=== PATIENT | female | born 2000 | race Caucasian/White ===

== ENCOUNTER 2025-02-05 10:36 | Emergency (ER) | payer OTHER, SELFPAY ==
--- OUTSIDE RECORDS SUMMARY | 2023-10-06 04:30 | XMS_ITS ---
Author Organization [facility] Address [address] [facility] [address] [place] [address] Care Team Providers Care Enamel Machine Operator Name Role Phone Radha ROTH, Luis Alfredo Primary Care Provider Unavail able Wilmer Moyer Unavailable [phone] [facility] Un[facility] Unavailable REASON FOR VISIT GERD Encounters Encounter Location Date Provider Diagnosis [facility] [address] [facility] [address] [address] [place] [address] 10/06/2023 [facility] Plan Of Treatment No Information Progress Notes * Lmabert DENSONDOB:[birth year] (24 yo F)Acc No.[id number]:10/06/2023 Upper-Endoscopy Procedure Op erative Report Patient: Lambert Montes Provider: [facility] :2000 A ge:23 Y S ex:Female Date:10/06/2023 Address:[address] [place] [address], [address], [place], [id number] Pcp:Luis Alfredo Garcia MD Subjective: * Chief Complaints: * G ERD Billing Information: * Procedure Codes: * Electronic signature of [facility] on 02/05/2025 at 11:47 AM EDT Sign off status: Pending * Provider: [facility] Date: 0 10/06/2023 Generated for Ivani ng/Fajeng/eTransmitting on: 0 02/05/2025 11:47 AM EDT
[2025-02-05 10:45] VITALS: BP 159/100; PULSE 123; RESP 22; TEMP 37.2; O2SAT 98; BMI 29.2
--- NOTE | 2025-02-05 10:45 | US_ITS ---
PROCEDURE INFORMATION: Exam: US Pelvis, Transvaginal, Non-Obstetric Exam date and time: 02/05/2025 10:55 AM Age: 24 years old Clinical indication: Pelvic pain and other: PT tried to remove iud this morning; Additional info: Tried toremove iud TECHNIQUE: Imaging protocol: Real-time transvaginal pelvic (non-obstetric) ultrasound with image documentation. Transvaginal imaging was used for better evaluation of the endometrium, adnexa, and/or cervix. COMPARISON: No relevant prior studies available. FINDINGS: Uterus: An IUD is within the endometrial cavity and demonstrates an abnormally low position, extending 6 mm into the upper cervical canal, series 1, image 5. Right ovary/adnexa: Normal. Normal-size. Small follicles are present. No mass. Normal ovarian blood flow on color Doppler. Left ovary/adnexa: Normal. Normal-size. Small follicles are present No mass. Normal ovarian blood flow on color Doppler. Urinary bladder: Urinary bladder is limited. Intraperitoneal space: No free fluid. IMPRESSION: Abnormal low position of the IUD extending 6 mm into the superior cervical canal.
--- NOTE | 2025-02-05 10:50 | HMH.EDGENADL ---
Discharge Plan Disposition Patient Disposition: Home, Self-Care Condition: Fair Referrals Follow up/Referrals: Ines Barlow DO [Staff Physician, METAL CANS SUPERVISOR] - See instructions Provider,Referral, [Primary Care Provider, Medical] - See instructions Activity Restrictions/Add. Instructions Additional Instructions/Restrictions: Please follow-up in office with Dr. Barlow so she can remove your IUD appropriately. If you have any more problems or concerns please return to the ED. Clinical Impressions Clinical Impression: Attempted IUD removal, unsuccessful Instructions Patient Instructions: DI for Intrauterine Device Removal Print Language Print Language: Icelandic Discharge ED Provider: Tristin Molina General Adult HPI General Chief complaint: Urogenital-Female Stated complaint: vomiting, abdominal pain, Poss IUD issues Time Seen by Provider: 02/05/25 10:54 Mode of Arrival: Ambulatory Source of Information: Patient Description of Symptoms (Recalled from ER Triage Doc. by RN): pt presents to ED with c/o cramping, nausea due to IUD displacement. pt reports that she tried removing her IUD herself at home. her IUD was placed 5 years ago, her OBGYN told her then that she could remove it herself. pt reports that she tried removing it at home but was unsuccessful. History of Present Illness HPI narrative: 24-year-old female presents to the ED today for complaint of cramping, nausea after she tried to remove her IUD herself at home. Her IUD was a Kyleena and it was placed 5 years ago by her AUTOMOTIVE ELECTRICAL HELPER in [place]. Patient says that her AUTOMOTIVE ELECTRICAL HELPER told her it was fine to remove her IUD once it expires. She said she tried to remove it and could not so she is now cramping. No fevers or chills. No vomiting. Related Data Allergies Allergy/AdvReac Type Severity Reaction Status Date / Time adhesive tape Allergy Hives Verified 02/05/25 10:51 Penicillins Allergy Hives Verified 02/05/25 10:51 quetiapine (From Seroquel) Allergy Hives Verified 02/05/25 10:51 PFSH PFS Disclaimer: The information contained in this section may have been updated after the patient was seen, as this information can be updated by other users. Social History Smoking Status: Never smoker alcohol intake: former current occupational status: other Travel in the last 8 weeks?: None ROS Obtained: Yes Systems reviewed as appropriate & no additional complaints except as documented Constitutional Constitutional: Reports as per HPI Physical Exam General General appearance: alert and anxious Head Head exam: normocephalic Eye Eye exam: Present PERRL and EOMI ENT ENT exam: Present normal oropharynx and mucous membranes moist Neck Neck exam: Present full ROM and trachea midline Respiratory Respiratory exam: Present normal lung sounds bilaterally Cardiovascular Cardiovascular exam: Present regular rate, normal rhythm, normal heart sounds, +S1 and +S2 Extremities Exam Extremities exam: Present normal inspection and full ROM Neurological Exam Neurological exam: Present alert and oriented X3 Skin Skin exam: Present warm, dry and intact Medical Decision Making Medical Records Screening: Per USPSTF and CDC recommendations, given the prevalence of disease in our region, it is our hospital?s policy to screen for HIV and viral Hepatitis for all patients aged 18 and over and those with ongoing risk factors. Rafael Inquiry Pt receiving controlled substance: No Rafael was queried for this patient: No Vital Signs: 02/05/25 10:45 02/05/25 11:00 02/05/25 11:46 Temperature 98.9 F Temperature Source Oral Pulse Rate 118 H 116 H Pulse Rate [Left Radial] 123 H Respiratory Rate 22 Blood Pressure 133/89 147/86 H Blood Pressure [Right Arm] 159/100 H Blood Pressure Mean [Right Arm] 119 02 Sat by Pulse Oximetry 98 99 97 02/05/25 12:32 Temperature 98.9 F Temperature Source Pulse Rate 116 H Pulse Rate [Left Radial] Respiratory Rate 22 Blood Pressure 147/86 H Blood Pressure [Right Arm] Blood Pressure Mean [Right Arm] 02 Sat by Pulse Oximetry Lab Data Lab Results 02/05/25 10:59: WBC 7.5, RBC 4.78, Hgb 13.2, Hct 40.5, MCV 84.7, MCH 27.6, MCHC 32.6, RDW 13.5, Plt Count 245, MPV 9.1, Neut % (Auto) 62.1, Lymph % (Auto) 29.1, [place] % (Auto) 7.1, Eos % (Auto) 1.1, Baso % (Auto) 0.5, Neut # (Auto) 4.6, Lymph # (Auto) 2.2, [place] # (Auto) 0.5, Eos # (Auto) 0.1, Baso # (Auto) 0.0, Sodium 139, Potassium 4.0, Chloride 107, Carbon Dioxide 22, Anion Gap 14.0, BUN 9, Creatinine 0.80, Estimated Creat Clear 133, Estimated GFR 89, Est GFR ( Amer) 108, Glucose 143 H, Calcium 9.6, Total Bilirubin 0.8, AST 36, ALT 36, Alkaline Phosphatase 76, Total Protein 7.9, Albumin 4.7, Globulin 3.2, Albumin/Globulin Ratio 1.5 02/05/25 10:59 02/05/25 10:59 Orders (Tests/Meds): ED MEDICATIONS Discontinued Medications Generic Name Dose Route Start Last Admin Trade Name Calosq PRN Reason Stop Dose Admin Acetaminophen 1,000 mg 02/05/25 10:46 02/05/25 11:26 Acetaminophen 1,000mg/100ml Vial IV 02/05/25 10:47 1,000 mg ONCE ONE Administration Ketorolac Tromethamine 30 mg 02/05/25 10:46 02/05/25 11:26 Ketorolac 30mg/Ml Vial IV 02/05/25 10:47 30 mg ONCE ONE Administration Morphine Sulfate 2 mg 02/05/25 11:36 02/05/25 11:43 Morphine 2mg/Ml Syringe IV 02/05/25 11:37 2 mg ONCE ONE Administration Promethazine HCl 12.5 mg 02/05/25 11:36 02/05/25 11:43 Promethazine Hcl 25mg/Ml 1ml Vial IV 02/05/25 11:37 12.5 mg ONCE ONE Administration Sodium Chloride 25 ml 02/05/25 11:36 02/05/25 11:43 Sodium Chloride 0.9% 25ml Bag IV 02/05/25 11:37 25 ml ONCE ONE Administration ORDERS Category Date Time Status US transvaginal Stat Exams 02/05/25 10:45 Completed CBC [Complete Blood Count Auto Diff] Stat Lab 02/05/25 10:59 Completed Comprehensive Metabolic Panel Stat Lab 02/05/25 10:59 Completed Medical Decision Narrative: patient is a 24-year-old female presenting to the emergency department for evaluation of cramping after trying to remove her IUD herself. Patient is hemodynamically stable and nontoxic-appearing upon arrival, afebrile. Differential diagnosis includes displacement of IUD, perforation, etc. Workup will be conducted with hematologic labs, specific imaging. Initial inventions include crystalloid bolus, analgesics. Initial workup reviewed by me [hematologic labs are remarkable for:]. [Imaging informally interpreted by me and remarkable for:] [Formal imaging read remarkable for:] Upon repeat evaluation [patient's pain is improved, appears better perfused, appears the same, appears worse, etc.]. Due to this [additional interventions, patient is appropriate for discharge, patient requires admission, etc.]. Critical Care Critical Care Time Critical Care Time: No
[2025-02-05 11:00] VITALS: BP 133/89; PULSE 118; O2SAT 99
[2025-02-05 11:06] LABS: Hematocrit 40.5 % (37.0-47.0); Hemoglobin 13.2 g/dL (12.2-16.2); Immature Granulocytes % 0.1 %; Mean Corpuscular HGB Conc 32.6 g/dL (31.8-35.4); Mean Corpuscular Hemoglobin 27.6 pg (27.0-31.2); Mean Corpuscular Volume 84.7 fl (81-99); Nucleated Red Blood Cells % 0 %; Platelet Count 245 K/mm3 (142-424); Red Blood Count 4.78 M/mm3 (4.20-5.40); Red Cell Distribution Width-SD 42.3 fL; White Blood Count 7.5 K/mm3 (4.8-10.8)
[2025-02-05] MEDS: ACETAMINOPHEN 1,000MG/100ML VIAL 1000 MG IV (11:26)
[2025-02-05] MEDS: KETOROLAC 30MG/ML VIAL 30 MG IV (11:26)
[2025-02-05 11:40] LABS: Alanine Aminotransferase 36 U/L (12-78); Albumin Level 4.7 g/dl (3.5-5.0); Albumin/Globulin Ratio 1.5 (1.1-1.8); Alkaline Phosphatase 76 U/L (38-126); Anion Gap 14.0 mEq/L (5-15); Aspartate Amino Transferase 36 U/L (14-36); Bilirubin,Total 0.8 mg/dl (0.2-1.3); Blood Urea Nitrogen 9 mg/dl (7-17); Calcium 9.6 mg/dl (8.4-10.2); Carbon Dioxide 22 mmol/L (22.0-30.0); Chloride 107 mmol/L (98-107); Creatinine Clearance Estimated 133 mL/min (50-200); Creatinine,Serum 0.80 mg/dl (0.52-1.04); Estimated Glomerular Filt Rate 89 ml/min (>60); GFR (African American) 108 ML/MIN (>60); Globulin 3.2 g/dL (1.3-3.2); Glucose 143 mg/dl (74-100); Potassium 4.0 mmoL/L (3.5-5.1); Sodium 139 mmol/L (136-145); Total Protein,Serum 7.9 g/dl (6.3-8.2)
[2025-02-05] MEDS: MORPHINE 2MG/ML SYRINGE 2 MG IV (11:43)
[2025-02-05] MEDS: SODIUM CHLORIDE 0.9% 25ML BAG 25 ML IV (11:43)
[2025-02-05] MEDS: PROMETHAZINE HCL 25MG/ML 1ML VIAL 12.5 MG IV (11:43)
[2025-02-05 11:46] VITALS: BP 147/86; PULSE 116; O2SAT 97
--- OUTSIDE RECORDS SUMMARY | 2025-02-05 11:47 | XMS_ITS | Patient Health Record ---
Author Organization [facility] Address [address] [place] [address] Care Team Providers Care Cream Cheese Maker Name Role Phone JonatanPascuale Unavailable [phone] Nando ROTH, Santiago Unavailable Unavailab le Allergies Allergen (clinical drug ingredient) Drug/Non Drug Allergy documented on EMR Reaction Allergy Type Onset Date Status codeine codeine (uncoded) Unknown Allergy Ac tive PNC (uncoded) Unknown Allergy Active quetiapine seroquel (uncoded) Unknown Allergy Active Reason For Referral No Information Medications Medication SIG (Take, Route, Frequency, Duration) Notes Start Date End Date Status Vitamin D3 Active Amitriptyline HCl 25 MG Tablet 1 tablet at bedtime Orally Once a day; Duration: 90 days 05/20/2020 Active Dicyclomine HCl 20 MG Tablet 1 tablet Or ally Three times a day as needed for abdominal pain.; Duration: 90 days Active Pantoprazole Sodium 40 MG Tablet Delayed Release 1 tablet Oral BID for 4 weeks then Once a day; Duration: 90 days 05/20/2020 Active Metoprolol Succinate Active OLANZapine Active LaMICtal Active Amitriptyline HCl 10 MG Tablet 1 tablet at bedtime Orally Once a day; Duration: 30 day(s) 04/17/2020 Active Social History Sex Assigned At : Social History Observation Description Sex Assigned At Female Social History Alcohol: Social Info Question Answer Notes Alcohol Current or past use of alcohol: Never Tobacco Use: Social Info Question Answer Notes . Are you a: never smoker Problems Problem Type SNOMED Code ICD Code Onset Dates Problem Status W/U Status Risk Notes Problem Gastroesophageal reflux disease (disorder) (759646016) Chronic GERD (K21.9) Active confirmed Plan Of Treatment No Information Insurance Providers Payer Name Payer Address Payer Phone Subscriber Number Group Number Insured Name Patient Relationship to Insured Coverage Start Date Coverage End Date [id number] [address] [place] [address] [id number] Lambert Denson Self - patient is the insured Medical (General) History Medical History History ICD Code gerd (NERD) anemia anxiety asthma psychiatric disorder. Surgical History Surgery Date(Month/Year) wisdone teeth 06/04/2019
--- OUTSIDE RECORDS SUMMARY | 2025-02-05 11:47 | XMS_ITS | Clinical Summary ---
Author Organization [facility] Address [address] [place] [address] Care Team Providers Care Machine Etcher Name Role Phone Kandi Kurt Bhat Primary Care Provider [phone] Allergies Active Allergy Reactions Criticality Noted Date Comments Adhesive Tape Rash Low 08/07/2024 Amoxicillin Rash Low 08/07/2024 Banana Anaphylaxis High 11/09/2024 Throat closed and couldn't breathe and mouth gets sores and really itchy Latex Rash Low 08/07/2024 Quetiapine Rash Low 08/07/2024 Medications busPIRone (BUSPAR) 15 MG tablet Take 1 tablet by mouth 3 (Three) Times a Day. 4 Active ibuprofen (ADVIL,MOTRIN) 200 MG tablet Take 1 tablet by mouth Every 6 (Six) Hours As Needed for Mild Pain. Active bisoprolol (ZEBeta) 5 MG tablet Take 1 tablet by mouth Daily. Patient will take half pill (2.5 mg qd) for 1 week followed by 1 full tablet daily (5 mg qd) if tolerating well 90 tablet 3 5 Active Active Problems Problem Noted Date Diagnosed Date Autonomic dysfunction 11/09/2024 Presence of cardiac pacemaker 11/09/2024 Bicuspid aortic valve 11/09/2024 Encounters Date Type Department Care Team Description 11/09/2024 2:45 PM EDT Office Visit [facility] [address] [address] Mitchell Clark PA-C Autonomic dysfunction (Primary Dx); Presence of cardiac pacemaker; Bicuspid aortic valve 11/09/2024 Travel from Last 3 Months Family History Medical History Relation Name Comments Cancer Mother Migraine headaches Mother Seizures Mother Relation Name Status Comments Father Alive Mother Alive Social History Tobacco Use Types Packs/Day Years Used Date Smoking Tobacco: Never Passive Smoke Exposure: Past Smokeless Tobacco: Never Tobacco Cessation:Counseling Given: Not Answered Alcohol Use Standard Drinks/Week Comments Not Currently 0 (1 standard drink = 0.6 oz pur e alcohol) Comments Unknown Sex and Gender Information Value Date Recorded Sex Assigned at Not on file Legal Sex Female 2:09 PM EST Gender Identity Not on file Sexual Orientation Not on file Last Filed Vital Signs Vital Sign Reading Time Taken Comments Blood Pressure 140/82 11/09/2024 1:04 PM EDT Pulse 97 11/09/2024 1:04 PM EDT Temperature - - Respiratory Rate - - Oxygen Saturation 99% 11/09/2024 1:04 PM EDT Inhaled Oxygen Concentration - - Weight 79.9 kg (176 lb 3.2 oz) 11/09/2024 1:04 P M EDT Height 162.6 cm (5' 4 ) 11/09/2024 1:04 PM EDT Body Mass Index 30.24 11/09/2024 1:04 PM EDT Plan of Treatment Upcoming Encounters Date Type Department Care Team (Late st Contact Info) Description 06/04/2025 2:15 PM EST Office Visit [facility] [address] [facility] [address] [place] [id number] Miguel Angel Yap MD [address] [facility] [address] [place] [address] Health Maintenance Due Date Last Done Comments Annual Gynecologic Pelvic an d Breast Exam 2001 HPV VACCINES (1 - 3-dose series) 2016 MENINGOCOCCAL B VACCINE (1 o f 2 - Standard) 2017 TDAP/TD VACCINES (1 - Tdap) 2020 PAP SMEAR 2022 ANNUAL PHYSICAL 08/06/2024 HEPATITIS C SCREENING 08/06/2024 COVID-19 Vaccine ( - 2023-2 5 season) 2025 INFLUENZA VACCINE 02/27/2025 Pneumococcal Vaccine 0-49 Aged Out No longer eligible based on patient's age to complete this topic Procedures Procedure Name Priority Date/Time Associated Diagnosis Comments REMOTE DEVICE CHECK 12/18/2024 1 1:19 PM EDT SCANNED EKG 11/09/2024 from Last 3 Months Results * Remote Device Check (12/18/2024 11:19 PM EDT) Date Time Interrogation Session [id number] [facility] Type Interrogation Session Remote [facility] Implantable Pulse Generator Custom Framing Specialist Medtronic [facility] Implantable Pulse Generator Type IPG [facility] Implantable Pulse Generator Model Prue XT SR MRI [id number] [facility] Implantable Pulse Generator Serial Number [id number] [facility] Implantable Pulse Generator Implant Date [id number] [facility] Battery Remaining Longevity 143.0 mo [facility] Battery Voltage 3.030 [facility] Battery VIDEO GAME TESTER Trigger 2.625 [facility] Battery Status OK [facility] Ariel Statistic RV Percent Paced 16.72 [facility] Lead Channel RV Sensing Intrinsic Amplitude 3.875 [facility] Lead Channel Setting RV Sensing Sensitivity 0.60 [facility] Lead Channel RV Impedance Value 456 [facility] Lead Channel Setting RV Pacing Amplitude 3.500 [facility] Lead Channel Setting RV Pacing Pulse Width 0.4 [facility] Ariel Setting Mode (NBG Code) VVIR [facility] Ariel Setting Lower Rate Limit 60 [facility] Ariel Setting Maximum Sensor Rate 150 [facility] Lead Channel Setting RV Sensing Polarity Bipolar [facility] Lead Channel Setting RV Pacing Polarity Bipolar [facility] Zone Setting Type Category VT [facility] IDC RATE 1 167 [facility] Zone Setting Status ENABLED [facility] Zone ID 6 [facility] 12/18/2024 11:1 9 PM EDT us Miguel Angel Yap MD CV IMPLANTABLE CARDIAC DEVICE Fi nal Result [facility] * ECG Scan (11/09/2024) Mitchell Clark PA-C ECG ORDERABLES Final Result from Last 3 Months Insurance Care Teams Machine Etcher Relationship Specialty Start Date End Date Kurt Chau DO [address] [place] [address] PCP - General Family Medicine 06/04/24
--- OUTSIDE RECORDS SUMMARY | 2025-02-05 11:47 | XMS_ITS | Patient Health Record ---
Author Organization [facility] Address [address] [place] [address] Care Team Providers Care Crusher Tender Name Role Phone Luis Alfredo Garcia MD Primary Care Provider Unavail Wilmer Carlos Unavailable [phone] Allergies Allergen (clinical drug ingredient) Drug/Non Drug Allergy documented on EMR Reaction Allergy Type Onset Date Status dermabond (uncoded) Unknown Allergy Active medical tape (uncoded) Unknown Allergy Active penicillin V penicillin V potassium Unknown Drug Allergy Active quetiapine Seroquel Unknown Drug Allergy Active Latex latex Unknown Allergy Active Reason For Referral No Information Medications Medication SIG (Take, Route, Frequency, Duration) Notes Start Date End Date Status Hyoscyamine 0.125 mg tablet, disintegrating 1 tab(s) orally 4 times a day; Duration: 30 days *Reorder from [facility] for eRx and Interaction Alerts* 12/06/2022 Active Sotalol 80 mg tablet 1 tab(s) orally 2 times a day; Duration: 30 day(s) 1 tab am/ 0.5 tab pm *Reorder from [facility] for eRx and Interaction Alerts* Active promethazine 12.5 mg suppository 1 SUPP(s) rectally 2 times a day as needed for nausea; Duration: 30 days *Reorder from [facility] for eRx and Interaction Alerts* 09/30/2023 Not-Taking colestipol 1 g tablet 2 tab(s) orally 2 times a day; Duration: 30 days *Reorder from [facility] for eRx and Interaction Alerts* 04/07/2023 Not-Taking Sucralfate 1 g tablet 1 tab(s) orally 4 times a day (before meals and at bedtime); Duration: 30 days *Pick strength-form from [facility] for eRX* 03/09/2023 Not-Taking busPIRone 15 mg tablet 0.5 tab orally 2 times a day *Reorder from [facility] for eRx and Interaction Alerts* Active Meloxicam 15 mg tablet 1 tab(s) orally once a day; Duration: 30 day(s) prn Active Cholestyramine sugar-free 4 g/5 g powder for reconstitution as directed orally 2 times a day; Duration: 30 days *Pick strength-form from [facility] for eRX* 03/09/2023 Not-Taking Social History Social History Additional Details Category Social Info Options Details Migrated Social History Migrated Social History (Breast Feeding:):no or n/a (Illicit/Recreational Drugs):no (Alcohol):no (COVID -19 Vaccinated):Yes (:):no or n/a (Travel out of country):no (Tattoos):no (Sleep Apnea:):no (Can you read or write?):yes (SMOKING/Smokeless Tobacco):no (Alcohol Screening (Audit-C)):no (Type of Learner): All (Active multiple sexual partners):no (Screen for Hep A,B,C ?):no (Marital status:):no Status: (Complications with sedation?):No (Any Bleeding disorders?):No (Drinking water source): City water with Filter (Caffeine):no used to drink energy drinks before pacemaker placement, will drink occasional tea (Claustrophobic:):no Problems Problem Type SNOMED Code ICD Code Onset Dates Problem Status W/U Status Risk Notes Problem Crohn's disease of small intestine (21236858) Crohn's disease of small intestine without complications (K50.00) Active confirmed Problem Noninfectious gastroenteritis (34668908) Other specified noninfective gastroenteritis and colitis (K52.89) Active confirmed Problem Irritable bowel syndrome with diarrhea (070113118) Irritable bowel syndrome with diarrhea (K58.0) Active confirmed Problem Epigastric pain (78604606) Epigastric pain (R10.13) Active confirmed Problem Vomiting without nausea (039878310234920) Vomiting without nausea (R11.11) Active confirmed Problem Nausea and vomiting (14048890) Nausea with vomiting, unspecified (R11.2) Active confirmed Problem Abdominal pain (05058923) Abdominal pain (R10.9) Active confirmed Problem Gastroesophageal reflux disease (859724873) GERD (gastroesophageal reflux disease) (K21.9) Active confirmed Encounters Encounter Location Date Provider Diagnosis [facility] [address] [facility] [place] [address] 04/18/2024 Wilmer Moyer Plan Of Treatment Pending Test Test Name Order Date Comprehensive Metabolic 03/09/2023 CBC w/Diff 03/09/2023 Future Test Test Name Order Date Abdomen and pelvis CT with contrast 11/27 Esophageal Manometry 12/06/[address] with contrast 02/27 Esophageal Manometry 03/09/2023 EGD - Hospital 03/09/2023 Comprehensive Metabolic 12/14/2023 Ferritin 12/14/2023 Sedimentation Rate/ESR 12/14/2023 CBC w/Diff 12/14/2023 CRP 12/14/2023 Insurance Providers Payer Name Payer Address Payer Phone Subscriber Number Group Number Insured Name Patient Relationship to Insured Coverage Start Date Coverage End Date [facility] [address] [place], [place] [id number] Lambert Denson Self - patient is the insured Medical (General) History Medical History History ICD Code Esophageal reflux Anemia Fatigue Polycystic ovarian disease Tachycardia Surgical History Surgery Date(Month/Year) Pacemaker placement 2021 Endoscopy Ablation on heart Hospitalization History Reason Date(Month/Year) Pacemaker Adjustment 01/2023
[2025-02-05 12:32] VITALS: BP 147/86; PULSE 116; RESP 22; TEMP 37.2; O2SAT 97
== END 2025-02-05 12:33 | disposition home or self-care (01) ==
PROVIDERS: Nurse Practitioner; Emergency Provider Student in an Organized Health Care Education/Training Program
DX: R10.9 Unspecified abdominal pain (principal); R11.10 Vomiting, unspecified; Z30.432 Encounter for removal of intrauterine contraceptive device
CPT/HCPCS: 76830; 80053; 85025; 96365; 96375; 99284; J0131; J1885; J2270; J2550